=== PATIENT | male | born 1955 | race Caucasian/White ===

== ENCOUNTER 2020-10-27 09:41 | Observation (INO) | payer MEDICARE ==
[2020-10-27] VITALS (12 sets, daily range): BP systolic 123–162; BP diastolic 59–81
[~2020-10-27] VITALS: Ht 190.5 cm; Wt 104.3 kg
--- NOTE | ~2020-10-27 | H ---
[address] [address] HISTORY AND PHYSICAL Name: NADINECRICKET Room: [address] Bashir Prado#: [id number] Admission: 10/27/20 Attend Phys: Jesus Lara MD, Discharge: 10/28/20 Date of : 55 Report #: [id number] THIS REPORT FOR: cc: Steve Gregorio MD, Logan F. MD ~ [facility],Medical Records Staff Please refer to the History and Physical performed in the physician's office. By: [id number] Records Staff [facility] /MICHAEL
[~2020-10-27 09:41] MED LIST: ACETAMINOPHEN500 M1 PO; ASPIR 8181 MG PO; ATIVAN1 MG PO; CARVEDILOL3.125 MG PO; COZAAR 25 MG TA25 M1 PO; EFFIENT10 MG PO; EMBEDA PO; FINASTERIDE5 MG PO; FUROSEMIDE 20 M20 MG PO; HUMALOG MI100 UNIT/3 SQ; LANTUS100 UNIT/M SUBQ; LEVEMIR SUBQ; LEVOTHYROXINE0.2 M1 PO; LEVOTHYROXINE200 MC2 PO; LIPITOR40 MG PO; LYRICA 75 MG CA75 MG PO; LYRICA150 MG PO; METFORMIN HCL500 MG PO; MIDODRINE HCL 55 M1 PO; MORPHINE NALTREXONE PO; NITROGLYCERIN0.4 MG SUBLING; OMEPRAZOLE20 M2 PO; OMEPRAZOLE40 MG PO; PACERONE 200 M200 M1 PO; PAROXETINE HCL20 MG PO; PERCOCET 10-321 EAC1 PO; PLAVIX 75 MG TA75 MG PO; PRISTIQ50 M1 PO; PROSCAR 5MG TABL5 MG PO; PROTONIX40 M2 PO; RANEXA500 MG PO; REGLAN 5 MG TAB5 MG PO; ROSUVASTATIN CA20 MG PO; TRAZODONE 150150 M1 PO; VENLAFAXIN75 MG/1 T2 PO; WELLBUTRIN SR150 MG PO; XARELTO10 MG PO; XARELTO20 MG PO; ZOFRAN4 MG PO
[2020-10-27 11:13] LABS: HEMATOCRIT 35.9 % (42.0-52.0); MCH 27.4 pg (26.0-34.0); MCHC 33.4 g/dL (28.0-37.0); MCV 82.2 fL (80.0-100.0); MPV 8.5 fl. (7.2-11.1); RBC 4.36 mil/uL (4.50-6.00); RDW-CV 14.9 % (10.5-14.5); WBC 5.4 thou/uL (4.0-11.0)
[2020-10-27 11:17] LABS: PLATELET COUNT* ND thou/uL (150-400)
[2020-10-27 11:27] LABS: ALBUMIN 2.9 g/dL (3.4-5.0); ALKALINE PHOSPHATASE 57 U/L (46-116); ANION GAP 8 mmol/L (7-16); BUN 12 mg/dL (7-18); CALCIUM 8.5 mg/dL (8.5-10.1); CHLORIDE 105 mmol/L (98-107); CHOLESTEROL 129 mg/dL (<200); CO2 29 mmol/L (21-32); CREATININE 0.9 mg/dL (0.6-1.3); GLUCOSE 126 mg/dL (70-99); HDL CHOLESTEROL 37 mg/dL (>40); LDL CHOLESTEROL 75 mg/dL (<100); POTASSIUM 3.3 mmol/L (3.5-5.1); SGOT 21 U/L (15-37); SGPT 24 U/L (30-65); SODIUM 142 mmol/L (136-145); TC:HDL 3.5 Ratio (Not establshd); TOTAL BILIRUBIN 0.3 mg/dL (<0.1-1.0); TOTAL PROTEIN 5.8 g/dL (6.4-8.2); TRIGLYCERIDE 89 mg/dL (<150); VLDL 18 mg/dL (<40)
[2020-10-27 11:29] LABS: SERUM ASSESSMENT Clear
[2020-10-27 11:45] LABS: APTT 26.4 Seconds (25.0-31.3); INR 1.1
--- NOTE | 2020-10-27 15:14 | EKG ---
[place] [address] ELECTROCARDIOGRAM REPORT Name: CRICKET MCCOY Room: [address] M.R.#: [id number] Admission: 10/27/20 Attend Phys: Oskar Burton Discharge: Date of : 55 Date of Service: 10/27/20 1340 Report #: [id number] THIS REPORT FOR: //name// [facility] Test Date: 2020-10-27 Test Time: 13:40:11 Pat Name: CRICKET MCCOY Department: Room: [facility] Gender: M Sebd Teacher: CARL : 1955 Requested By: Jesus Lara Order Number: [id number] Reading MD: Jose Mims Measurements Intervals [place] Rate: 67 P: 60 MA: 174 QRS: 80 QRSD: 132 T: -38 QT: 567 QTc: 599 Interpretive Statements Sinus rhythm Multiple ventricular premature complexes Probable left atrial enlargement Nonspecific intraventricular conduction delay Inferior infarct, age indeterminate Compared to ECG 10/27/2020 11:34:38 No significant changes Electronically Signed On 10-27-2020 15:14:31 PARCEL POST DELIVERY by Jose Mims [email or web address] <ELECTRONICALLY SIGNED> By: Jose Mims MD, FAC 10/27/20 1514 1340 1340 Jose Mims MD, FAC /EPI
--- NOTE | 2020-10-27 15:14 | EKG ---
[place] [address] ELECTROCARDIOGRAM REPORT Name: CIRCKET MCCOY Room: [address] M.R.#: [id number] Admission: 10/27/20 Attend Phys: Oskar Burton Discharge: Date of : 55 Date of Service: 10/27/20 1134 Report #: [id number] THIS REPORT FOR: //name// [facility] Test Date: 2020-10-27 Test Time: 11:34:38 Pat Name: CRICKET MCCOY Department: Room: [facility] Gender: M Smutter: : 1955 Requested By: Jesus Lara Order Number: [id number] Reading MD: Jesus Lara Measurements Intervals [place] Rate: 66 P: 40 MN: 176 QRS: 68 QRSD: 123 T: 241 QT: 629 QTc: 660 Interpretive Statements Sinus rhythm Ventricular trigeminy Nonspecific intraventricular conduction delay Inferior infarct, old Compared to ECG 05/09/2017 16:15:10 Ventricular premature complex(es) now present Myocardial infarct finding still present Electronically Signed On 10-27-2020 15:14:19 SENIOR SAFETY MANAGEMENT CONSULTANT by Jesus Lara [email or web address] <ELECTRONICALLY SIGNED> By: Jesus Lara MD, [facility] 10/27/20 1514 1134 1134 Jesus Lara MD, [facility] /EPI
--- NOTE | 2020-10-27 16:07 | CARD ---
[address] [address] CARDIAC CATH REPORT Name: CRICKET MCCOY Room: [address] Bashir Prado#: [id number] Admission: 10/27/20 Attend Phys: Jesus Lara MD, Discharge: Date of : 55 Report #: [id number] THIS REPORT FOR: cc: Steve Gregorio MD, Logan F. MD ~ Jesus Lara MD [facility] APPROVED REPORT Study performed: 10/27/2020 11:21:19 Patient Details Patient Status: Out-Patient Room #: The patient is a 65 year-old male Event Personnel Jesus Lara Project Coordinator Rn, Susan Cordon RN Fish Inspector, Cricket Oglesby ALL PURPOSE CLERK Scrub, Zander Bassett ALL PURPOSE CLERK Monitor, Eulalia Batista Fish Inspector Procedures Performed Art Access - R femoral artery* Left Heart Cath w/or w/o Coronaries [id number] [facility] TONYA Place w/wo Plasty Single CIRC 337[address] TON[address] w/wo Plasty Addl BR OM [address] w/wo Plasty Addl BR DIAG 2 C9601 DESADDL Hemostasis w/ Mynx Indication Unstable angina Risk Factors Hypercholesterolemia, Hypertension Previous Procedures/Diagnoses Previous PCI, Previous MS Procedure Narrative The patient was brought electively to the Cardiac Catheterization Laboratory and was prepped and draped in a sterile manner. The right femoral was infiltrated with 2% Lidocaine subcutaneous anesthesia. A [place] 6 FR sheath was inserted into the right femoral artery. Coronary angiography was performed using coronary diagnostic catheters. The right coronary system was accessed and visualized with a JR4 catheter. The left coronary system was accessed and visualized with a JL4 catheter. The left ventricle was accessed and visualized with a Pig Tail catheter. Left ventricular/[place] [address] CARDIAC CATH REPORT Name: NADINECRICKET Room: [address] M..#: [id number] Admission: 10/27/20 Attend Phys: Jesus Lara MD, Discharge: Date of : 55 Report #: [id number] assessed via catheter pullback. Pre-demployment femoral angiogram was performed . Closure device was deployed with a 6 Fr Mynx. The patient tolerated the procedure well and there were no complications associated with the procedure. There was no hematoma. Intraoperative Conscious Sedation Sedation start time: 11:55 Case end Time: 13:00 Fentanyl 50 mcg Versed 3 mg Fluoro Time: 17.8 minutes Dose: DAP [id number] cGycm2 4047 mGy Contrast Type and Amount: Visipaque 440 ml Diagnostic Cath Left Main 0% narrowing LAD 30% mid LAD narrowing with 90% ostial second diagonal branch stenosis Hemodynamics The aortic pressure is 133/51 mmHg with a mean of 80 mmHg. The left ventricular pressure is 132/10 mmHg with a mean of mmHg. The left ventricular end diastolic pressure is 26 mmHg. There was no gradient across the aortic valve upon pullback. PCI Technique Lesion Anticoagulation was achieved with Angiomax. Patient was preloaded with Angiomax IV 16 ml. Percutaneous coronary intervention was performed on the second diagnonal branch segment. The lesion stenosis prior to intervention was 90% with ZEINA 3 flow. A 6FR XB 3.5 100CM Guide Catheter was used to engage the left ostium. A IG: ProwaterFlex 180CM Interventional Guidewire was used to cross the lesion. BALLOON DILATION A Balloon catheter Mini Trek RX 2.0 X 8 was inserted and inflated up to 12.00atm for 9seconds. Additional Inflation: 14.00atm for 6seconds. STENT DEPLOYMENT A drug-eluting stent Juan RX Stent 2.0X8mm was inserted and inflated up to 12.00atm for 8seconds. Additional Inflation: 14.00atm for 5seconds. Final angiography reveals 0 % stenosis with [place] 3 [place] [address] CARDIAC CATH REPORT Name: CRICKET MCCOY Room: [address] M.R.#: [id number] Admission: 10/27/20 Attend Phys: Jesus Lara MD, Discharge: Date of : 55 Report #: [id number] PCI Technique Lesion 2 Percutaneous Coronary Intervention was performed on the second obtuse marginal branch segment. The lesion stenosis prior to intervention was 75% with ZEINA 3 flow. Balloon Dilation A Balloon catheter Mini Trek RX 2.0 X 8 was inserted and inflated up to 14.00atm for 11seconds. Stent Deployment A drug-eluting stent [place] RX Stent 2.0X12mm was inserted and inflated up to 10.00atm for 10seconds. Additional Inflation: 12.00atm for 5seconds. Additional Inflation: 14.00atm for 6seconds. Final angiography reveals 10 % stenosis with ZEINA 3 flow. PCI Technique Lesion 3 Percutaneous Coronary Intervention was performed on the proximal circumflex artery segment. The lesion stenosis prior to intervention was 80% with ZEINA flow. Stent Deployment A drug-eluting stent [place] RX Stent 2.25X8mm was inserted and inflated up to 14.00atm for 7seconds. Additional Inflation: 18.00atm for 6seconds. Additional Inflation: 20.00atm for 7seconds. Post Stent Deployment Balloon Dilation A Balloon catheter NC Trek RX 2.5 X 8 was inserted and inflated up to 12.00atm for 8seconds. Additional Inflation: 14.00atm for 6seconds. Additional Inflation: 18.00atm for 9seconds. Final angiography reveals 10 % stenosis with ZEINA 3 flow. Conclusion 1. Significant multivessel coronary artery disease characterized by the following: A 90% ostial second diagonal stenosis with 30% mid LAD narrowing B 80% proximal circumflex stenosis with 75% proximal second marginal narrowing C total occlusion of the dominant right coronary artery in its midportion with [id number]-cf-zjhva collaterals [place] [address] CARDIAC CATH REPORT Name: CRICKET MCCOY Room: [address] Bashir Prado#: [id number] Admission: 10/27/20 Attend Phys: Jesus Lara MD, Discharge: Date of : 55 Report #: [id number] distal right coronary artery 2. Moderately severe elevation of left ventricular end-diastolic pressure at rest 3. Successful PCI with deployment of a drug-eluting stent at site of 90% ostial second diagonal stenosis with 0% residual narrowing and ZEINA-3 flow to the distal vessel 4. Successful PCI with deployment of drug-eluting stents at the sites of 80% proximal circumflex stenosis and 75% proximal second marginal narrowing with 10% residual narrowings at both sites following stent deployment and ZEINA-3 flow to the distal circulation Recommendations Cardiac Risk Reduction Program Aggressive Medical Therapy Medications Administered Aspirin (any) Clopidogrel Diagnostic Cath Approved by: Jesus Lara MD Date/Time: 10/27/2020 16:05:46 <ELECTRONICALLY SIGNED> By: Jesus Lara MD, FACC 10/27/20 1607 1607 1607Jesus Lara MD, FACC /INF
[2020-10-28] VITALS: BP 137/73; BP 162/81
[2020-10-28 04:12] VITALS: BP 115/60
[2020-10-28 05:01] LABS: HEMATOCRIT 30.8 % (42.0-52.0); HEMOGLOBIN 10.4 gm/dL (14.0-18.0); MCH 27.6 pg (26.0-34.0); MCHC 33.9 g/dL (28.0-37.0); MCV 81.5 fL (80.0-100.0); MPV 8.1 fl. (7.2-11.1); RBC 3.78 mil/uL (4.50-6.00); RDW-CV 14.8 % (10.5-14.5)
[2020-10-28 05:34] LABS: ALBUMIN 2.6 g/dL (3.4-5.0); CALCIUM 7.8 mg/dL (8.5-10.1); POTASSIUM 3.2 mmol/L (3.5-5.1); TOTAL BILIRUBIN 0.3 mg/dL (<0.1-1.0); TOTAL PROTEIN 5.8 g/dL (6.4-8.2); TROPONIN-I LEVEL 0.37 ng/mL (<0.06)
[2020-10-28 08:00] VITALS: BP 134/66
[2020-10-28] MEDS ORDERED: ASPIR 8181 MG PO (09:41)
[2020-10-28 10:36] VITALS: BP 134/66
--- NOTE | 2020-10-28 16:18 | EKG ---
[place] [address] ELECTROCARDIOGRAM REPORT Name: CRICKET MCCOY Room: [address] M.R.#: [id number] Admission: 10/27/20 Attend Phys: Oskar Burton Discharge: 10/28/20 Date of : 55 Date of Service: 10/28/20920 Report #: [id number] THIS REPORT FOR: //name// [facility] Test Date: 2020-10-28 Test Time: 09:21:32 Pat Name: CRICKET MCCOY Department: Room: [facility] Gender: M Maintenance Dispatcher: CARL : 1955 Requested By: Jesus Lara Order Number: [id number] Reading MD: Jesus Lara Measurements Intervals [place] Rate: 67 P: 52 MT: 186 QRS: 73 QRSD: 126 T: -86 QT: 525 QTc: 555 Interpretive Statements Sinus rhythm Nonspecific intraventricular conduction delay Inferior infarct, age indeterminate Compared to ECG 10/27/2020 13:40:11 Ventricular premature complex(es) no longer present Myocardial infarct finding still present Electronically Signed On 10-28-2020 16:18:24 SPRAY GUN REPAIRER HELPER by Jesus Lara [email or web address] <ELECTRONICALLY SIGNED> By: Jesus Lara MD, FAC 10/28/20 1618 0 0 Jesus Lara MD, FAC /EPI
--- NOTE | 2020-10-29 16:38 | D ---
[address] [address] DISCHARGE SUMMARY Name: CRICKET MCCOY Room: [address] Bashir Prado#: [id number] Admission: 10/27/20 Attend Phys: Jesus Lara MD, Discharge: 10/28/20 Date of : 55 Report #: [id number] THIS REPORT FOR: cc: Steve Gregorio MD, Logan F. MD ~ Jesus Lara MD [facility] FINAL DISCHARGE DIAGNOSES: 1. Unstable angina. 2. Coronary artery disease. 3. Ischemic cardiomyopathy. 4. History of remote myocardial infarction. 5. Status post PCI to the first diagonal branch of the LAD, proximal circumflex and second marginal branch of the circumflex. 6. Peripheral vascular disease. 7. History of transient ischemic attack. PROCEDURES: 10/27/2020 -- left heart catheterization, selective coronary arteriography and PCI with deployment of drug-eluting stent at site of 90% ostial second diagonal stenosis, drug-eluting stents in the proximal circumflex and second marginal branch of the circumflex with a 0, 10 and 10% residual following the stent deployment respectively. The patient did well post-procedurally. Troponin norma inconsequentially to 0.37. He had no chest pain post-procedurally. The patient's laboratory on 10/28/2020 revealed sodium 139, potassium 3.2 and subsequent supplement having been given, BUN 11, creatinine 1.0, glucose 169. Hemoglobin 10.4, white blood cell count 6000, hematocrit 30.8, platelets 250,000. He ambulated without difficulty. DISCHARGE MEDICATIONS: He was discharged to home on the following medications: Midodrine 5 mg tablets 10 mg p.o. t.i.d., p.r.n. acetaminophen, amiodarone 200 mg daily, finasteride 5 mg daily, Humalog 50/50 insulin per his home dose as scheduled, L-thyroxine 200 mcg daily, metformin 500 mg b.i.d. to be resumed on 10/29/2020, p.r.n. sublingual nitroglycerin, Xarelto 20 mg daily to be resumed on 10/29/2020, trazodone 150 mg at bedtime, Plavix 75 mg daily, metoclopramide 5 mg q.i.d., morphine, naltrexone as utilized at home previously, ondansetron 4 mg tablets p.r.n. nausea, oxycodone/acetaminophen 10/325 every 4 hours as needed for pain, Protonix 40 mg daily, paroxetine 20 mg daily, Lyrica 150 mg t.i.d., rosuvastatin 20 mg daily, Ranexa or ranolazine was discontinued. The patient is scheduled to return to see Dr. Mclean on 12/17/[address] [facility] [place] [address] DISCHARGE SUMMARY Name: CRICKET MCCOY Room: [address] Bashir Prado#: [id number] Admission: 10/27/20 Attend Phys: Jesus Lara MD, Discharge: 10/28/20 Date of : 55 Report #: [id number] Therefore, the patient is discharged to home in stable condition on the aforementioned medications with followup as iterated above. <ELECTRONICALLY SIGNED> By: Jesus Lara MD, FAC 10/29/20 1638 0948 [id number] Lara MD, FAC /nt
== END 2020-10-28 11:30 | disposition home or self-care (01) ==
LOC: M.RAD 09:41 → M.CL 11:00 → M.TBA-CV 13:16 → M.2W 16:30
PROVIDERS: ADMIT Internal Medicine; ATTEND Internal Medicine
DX: I25.110 Atherosclerotic heart disease of native coronary artery with unstable angina pectoris (principal); E78.5 Hyperlipidemia, unspecified; I73.9 Peripheral vascular disease, unspecified; I25.5 Ischemic cardiomyopathy; I10 Essential (primary) hypertension; E78.00 Pure hypercholesterolemia, unspecified; Z79.82 Long term (current) use of aspirin; Z79.899 Other long term (current) drug therapy; Z20.828 Contact with and (suspected) exposure to other viral communicable diseases